=== PATIENT | female | born 1980 | race Caucasian/White ===

== ENCOUNTER → 2019-10-22 08:37 | Outpatient (CLI) | payer BC, SELFPAY ==
[2019-10-22 10:43] LABS: Coronavirus 19 IgG Antibody Negative (Negative); Coronavirus 19 IgM Antibody Negative (Negative)
== END ==
PROVIDERS: Visit Provider Internal Medicine Gastroenterology
DX: Z01.818 Encounter for other preprocedural examination (principal); Z12.11 Encounter for screening for malignant neoplasm of colon; R19.7 Diarrhea, unspecified
CPT/HCPCS: 36415; 86328

== ENCOUNTER 2019-10-23 08:40 | Day surgery (SDC) | payer BC, SELFPAY ==
[2019-10-15 13:35] VITALS: BMI 26.2
[2019-10-23] VITALS (7 sets, daily range): BP systolic 102–124; BP diastolic 62–86; PULSE 71–87; RESP 18; TEMP 36.6–36.9; O2SAT 96–100
[2019-10-23 09:45] LABS: HCG Qualitative, Serum Negative (Negative)
--- NOTE | 2019-10-23 10:07 | HMH.ANESCL ---
[facility] Anesthesia Checklist - Structural Data Admitted From: Home Planned Operative Procedure/s: colonoscopy Consent for Planned Operative Procedure(s) Verified: Yes - Airway Assessment C-Spine Mobility Assessed: Yes TMJ Mobility Assessed: Yes Dentition: Good Dentition - Neurological Assessment Level of Consciousness: Awake, Alert, Appropriate - Anesthesia Plan Anesthesia Risk discussed: Yes Anesthesia Plan: Verified ASA Class: II Anesthesia Type: MAC [facility] History I have reviewed the patient's past medical history: Yes Medical History: Denies:: Cancer, Diabetes Mellitus Type 1, Diabetes Mellitus Type 2, Internal Pacemaker, MRSA, Seizures *Have you ever received a pneumonia vaccine?: No *Have you received a flu vaccine this season?: Yes Anesthesia experience/problems:: none Other Surgeries: No: Pacemaker Amputation: No - *Social History Last grade of school completed: High school graduate Alcohol Intake: current Alcohol Intake Frequency:: holidays/special occasions only Substance Use Type: denies use *Occupational Status:: employed *Travel in the last 8 weeks: None Family Hx:: No significant family history
--- NOTE | 2019-10-23 10:27 | P.PCN_ITS ---
[facility] Procedure Note Procedure Note:: Colonoscopy Procedure Report: Colonoscopy with cold biopsies Endoscopist: Jarred Pompa II, MD Referring physician: Christen Griggs PA-C Date of Procedure: October 23, 2019 Equipment: Olympus 180 variable stiffness pediatric colonoscope Sedation: MAC sedation Indication: Mrs. Ya is a 38-year-old female with longstanding irritable bowel syndrome for 13 to 14 years. She does have diarrhea predominant symptoms. She did improve with Cymbalta for several years but recently has had more exacerbation of symptoms. She reports diarrhea that occurs once or twice weekly with associated intense cramps and urgency. She can be in the bathroom for up to an hour. She does report the feeling of incomplete bowel evacuation. There is some mucus with her bowel movements but no blood. In between the bouts of diarrhea, she will get some mild constipation. She has had some intentional weight loss with using phentermine. She did have normal blood work with normal chemistries and negative IBD serologies (negative p-ANCA and negative ASCA IgG and IgA antibodies). She also had negative celiac serologies. She had a negative C 13 sucrose breath test. This is her first colonoscopy. She reports some increased fatigue. She has had more stress since COVID. Procedure: Prior to the procedure, a history and physical exam was performed, and patient's medications and allergies were reviewed. The risks, benefits and alternatives of the sedation and procedure were discussed with the patient. All questions were answered and informed consent was obtained. The patient was brought to the procedure room. Patient identification and proposed procedure were verified by the physician and the nurse. The patient was placed in a left lateral decubitus position and the scope was passed under direct vision. Throughout the procedure, the patient's blood pressure, pulse, and oxygen saturations were m onitored continuously. The colonoscopy was accomplished without difficulty. The patient tolerated the procedure well. Findings: On digital rectal examination there was normal rectal tone. There were no external hemorrhoids. The colonoscope was introduced through the anal canal to the rectum and advanced to the cecum. The ileocecal valve and appendiceal orifice were identified. The scope was advanced a short distance into the ileum which appeared grossly normal. The scope was then withdrawn into the colon. The cecum, ascending, transverse, descending, sigmoid and rectum were grossly normal. Cold biopsies were taken from the right colon to rule out microscopic colitis. There were no mucosal abnormalities identified. Upon retroflexion within the rectum there were grade 1 internal hemorrhoids.The preparation was excellent throughout with [place] Preparation Score of 9. The cecal time was 12. Impression: 1. Normal colonoscopy with intubation of the terminal ileum 2. Grade 1 internal hemorrhoids Plan: I will follow-up the colonic biopsies. I do feel that the patient does have alternating IBS. We will discuss management options with dietary measures and treatment. I do feel that she gets marked colonic degradation/fermentation resulting in gas, cramps and diarrhea.
== END 2019-10-23 11:30 | disposition home or self-care (01) ==
PROVIDERS: PCP Physician Assistant; Visit Provider Internal Medicine Gastroenterology
PROC: 0DJD8ZZ Inspection of Lower Intestinal Tract, Via Natural or Artificial Opening Endoscopic (ICD-10-PCS; CPT 45378; principal; 2019-10-23 09:30)
DX: K64.0 First degree hemorrhoids (principal); K58.0 Irritable bowel syndrome with diarrhea; F41.9 Anxiety disorder, unspecified; Z83.3 Family history of diabetes mellitus; Z82.49 Family history of ischemic heart disease and other diseases of the circulatory system
CPT/HCPCS: 45380; 84703